=== PATIENT | male | born 1975 ===

== ENCOUNTER 2022-02-06 17:30 | Outpatient (CLI) | payer BC | END 2022-02-06 17:31 | disposition home or self-care (01) | LOC: SLEEPLAB 17:30 | PROVIDERS: ATTEND Family Medicine | DX: G47.33 Obstructive sleep apnea (adult) (pediatric) (principal); R53.83 Other fatigue; E11.9 Type 2 diabetes mellitus without complications; E66.9 Obesity, unspecified; R06.83 Snoring; Z68.34 Body mass index [BMI] 34.0-34.9, adult | CPT/HCPCS: 95800 ==